=== PATIENT | female | born 1990 | race Caucasian/White ===

== ENCOUNTER 2017-01-30 19:58 | Inpatient (IN) | payer OTHER ==
[~2017-01-30] VITALS: Ht 162.6 cm; Wt 73.8 kg
[~2017-01-30 19:58] MED LIST: ALLEGRA30 MG PO; AMOXICILLIN500 MG PO; ATIVAN0.5 MG PO; BUPROPION XL150 MG PO; BUPROPION XL300 MG PO; CITALOPRAM HBR20 MG PO; DAILY VITAMIN1 EAC8 PO; EFFEXOR XR75 MG PO; Effexor PO; FIORICET 50-301 EACH PO; Flagyl PO; GEODON40 MG PO; HYDROXYZINE HCL25 MG PO; IBUPROFEN200 M1 PO; KEFLEX500 MG PO; LAMICTAL25 MG PO; LAMOTRIGINE200 MG PO; LAMOTRIGINE25 MG PO; LORAZEPAM0.5 MG PO; Motrin PO; NATALCARE RX1 TABLET PO; OMEPRAZOLE20 MG PO; PRENATAL TABLE1 EAC3 PO; PRENATAL1 EACH PO; TOPAMAX100 MG PO; TOPAMAX50 MG PO; TRAZODONE HCL50 MG PO; Tylenol PM PO; VENLAFAXINE HC150 M1 PO; ZIPRASIDONE HCL20 MG PO; ZITHROMAX250 MG PO; ZOFRAN4 MG PO; [UNRECOGNIZED DRUG - OTHER] PO
[2017-01-30 22:58] LABS: ADD MIUA? NO; BILIRUBIN NEGATIVE; BLOOD NEGATIVE; COLOR YELLOW ((YELLOW)); GLUCOSE (STRIP) NEGATIVE; KETONES NEGATIVE; LEUKOCYTES NEGATIVE; NITRITE NEGATIVE; PROTEIN (STRIP) 30; SPECIFIC GRAVITY 1.023 (1.000-1.030); UCUL ADDED? NO; UROBILINOGEN 0.2 MG/DL (0.2-1.0)
[2017-01-30 23:13] LABS: ADD MEDTOX COMMENT Y; AMPHETAMINE NEGATIVE (500 ng/mL); BARBITURATES NEGATIVE (200 ng/mL); BENZODIAZEPINES PRESUMPTIVE POSITIVE (150 ng/mL); COCAINE NEGATIVE (150 ng/mL); INTERNAL CONTROLS VALID? YES; METHADONE NEGATIVE (200 ng/mL); METHAMPHETAMINE NEGATIVE (500 ng/mL); OPIATES (MORPHINE) NEGATIVE (100 ng/mL); OXYCODONE NEGATIVE (100 ng/mL); PHENCYCLIDINE NEGATIVE (25 ng/mL); PROPOXYPHENE NEGATIVE (300 ng/mL); THC CANNABINOIDS NEGATIVE (50 ng/mL); TRICYCLIC ANTIDEPRESSANTS NEGATIVE (300 ng/mL)
[2017-01-31 00:06] LABS: HEMATOCRIT 37.1 % (36.0-46.0); MCH 31.6 PG (29.0-34.0); MCHC 33.4 G/DL (30.0-36.0); MCV 94.4 FL (83-99); PLATELET COUNT 201 K/uL (156-360); RBC DIS.WIDTH-CV 11.5 % (11.8-14.6); RBC DIS.WIDTH-SD 39.2 % (39-53); RED BLOOD COUNT 3.93 M/uL (3.80-5.20); WHITE BLOOD COUNT 5.8 K/uL (4.1-10.2)
[2017-01-31 00:15] LABS: CHLORIDE 106 mEq/L (99-109); POTASSIUM 3.6 mEq/L (3.7-5.4); SODIUM 138 mEq/L (136-147)
[2017-01-31 00:17] LABS: GLUCOSE 114 mg/dL (70-99)
[2017-01-31 00:18] LABS: ANION GAP 6 MEQ/L (2-14)
[2017-01-31 00:21] LABS: GFR ESTIMATE (CALCULATED) > 59 mL/min/
[2017-01-31 00:22] LABS: UREA NITROGEN (BUN) 11 mg/dL (9-23)
[2017-01-31 00:30] LABS: QUANTITATIVE HCG < 4.0 MIU/ML
[2017-01-31 01:19] LABS: BENZODIAZEPINES, URINE SCREEN POSITIVE (200 ng/mL)
[2017-01-31] MEDS ORDERED: TYLENOL EXTRA500 MG PO (16:38)
[2017-01-31] MEDS ORDERED: DAILY VITE1 EAC1 PO (16:38)
[2017-01-31] MEDS ORDERED: NEURONTIN300 MG PO (16:40)
[2017-01-31 17:47] VITALS: BP 115/62
[2017-01-31] MEDS ORDERED: TOPAMAX200 MG PO (19:10)
[2017-02-01 07:46] VITALS: BP 98/61
[2017-02-01 15:20] VITALS: BP 106/56
[2017-02-02 07:32] VITALS: BP 113/52
[2017-02-02 10:50] VITALS: BP 114/66
[2017-02-02 15:33] VITALS: BP 106/54
[2017-02-03 08:17] VITALS: BP 96/55
[2017-02-03 11:39] VITALS: BP 89/59
[2017-02-03 13:13] VITALS: BP 98/55
[2017-02-03 15:38] VITALS: BP 99/55
[2017-02-04 07:30] VITALS: BP 88/52
[2017-02-04] MEDS ORDERED: TOPAMAX200 MG PO (10:00)
[2017-02-04] MEDS ORDERED: NEURONTIN300 MG PO (10:00)
[2017-02-04] MEDS ORDERED: LAMICTAL25 MG PO (10:00)
[2017-02-04 11:49] VITALS: BP 113/55
== END 2017-02-04 12:45 | disposition home or self-care (01) | DRG 885 ==
LOC: EME 19:58 → EDOF 01-31 15:02 → 1WEST 01-31 15:02
PROVIDERS: Emergency Medicine
DX: F31.81 Bipolar II disorder (principal); R45.851 Suicidal ideations; F11.20 Opioid dependence, uncomplicated; F17.210 Nicotine dependence, cigarettes, uncomplicated; F13.10 Sedative, hypnotic or anxiolytic abuse, uncomplicated; G43.909 Migraine, unspecified, not intractable, without status migrainosus; Z81.8 Family history of other mental and behavioral disorders; Z56.0 Unemployment, unspecified; Z81.1 Family history of alcohol abuse and dependence
CPT/HCPCS: 71020; 80048; 81003; 84702; 84999; 85027; 97150 GO; 97166 GO; 99281; 99284; Q0177

== ENCOUNTER 2018-02-04 19:28 | Emergency (ER) | payer OTHER ==
[~2018-02-04] VITALS: Ht 162.6 cm; Wt 70.9 kg
[~2018-02-04 19:28] MED LIST changes: +DAILY VITE1 EAC1 PO; +NEURONTIN300 MG PO; +TOPAMAX200 MG PO; +TYLENOL EXTRA500 MG PO
[2018-02-04 23:57] VITALS: BP 110/66
== END 2018-02-05 00:04 | disposition home or self-care (01) ==
LOC: EME → EDBD 19:28 → EME 02-05 00:04
DX: T40.1X1A Poisoning by heroin, accidental (unintentional), initial encounter (principal); G43.909 Migraine, unspecified, not intractable, without status migrainosus; F17.200 Nicotine dependence, unspecified, uncomplicated
CPT/HCPCS: 99281; 99285